=== PATIENT | female | born 1950 | race Caucasian/White ===

== ENCOUNTER 2017-07-30 07:09 | Observation (INO) | payer MEDICARE, OTHER ==
[~2017-07-30 07:09] MED LIST: CEFAZOLIN 1 GM INJ; CEFAZOLIN 1 GM/50 ML (PMX) 50 ML IVPB; GLYCOPYRROLATE 0.4 MG INJ; SOD CHLORIDE 0.9% 1,000 ML IV
[2017-07-30 11:02] LABS: ADD MAN DIFF? NO
[2017-07-30 11:07] LABS: BASOPHIL # 0.1 10^3/ul (0.0-0.1); BASOPHILS % 1.1 % (0.0-2.0); EOSINOPHILS # 0.2 10^3/ul (0.0-0.5); EOSINOPHILS % 4.4 % (0.0-7.0); HEMOGLOBIN 13.4 g/dl (12.0-16.0); LYMPHOCYTES # 1.6 10^3/ul (0.8-2.9); LYMPHOCYTES % 29.6 % (15.0-51.0); MEAN CORPUSCULAR HEMOGLOBIN 29.5 pg (29.0-33.0); MEAN CORPUSCULAR HGB CONC 33.5 g/dl (32.0-37.0); MEAN CORPUSCULAR VOLUME 88.1 fl (82.0-101.0); MEAN PLATELET VOLUME 9.8 fl (7.4-10.4); MONOCYTE # 0.4 10^3/ul (0.3-0.9); MONOCYTES % 6.6 % (0.0-11.0); NEUTROPHIL # 3.2 10^3/ul (1.6-7.5); NEUTROPHILS % 58.1 % (39.0-77.0); PLATELET COUNT 238 10^3/UL (140-415); RED BLOOD COUNT 4.54 10^6/ul (4.20-5.40); RED CELL DISTRIBUTION WIDTH 12.4 % (11.5-14.5)
[2017-07-30 11:07] LABS: WHITE BLOOD COUNT 5.5 10^3/ul (4.8-10.8)
[2017-07-30 11:23] LABS: ALANINE AMINOTRANSFERASE 44 IU/L (13-69); ALBUMIN 4.3 g/dl (3.3-4.9); ALBUMIN/GLOBULIN RATIO 1.34; ALKALINE PHOSPHATASE 78 IU/L (42-121); ANION GAP 15 (8-16); ASPARTATE AMINO TRANSFERASE 28 IU/L (15-46); BILIRUBIN,INDIRECT 0.3 mg/dl (0-1.1); BILIRUBIN,TOTAL 0.3 mg/dl (0.2-1.3); BLOOD UREA NITROGEN 13 mg/dl (7-20); CALCIUM 8.8 mg/dl (8.4-10.2); CARBON DIOXIDE 31 mmol/L (21-31); CHLORIDE 102 mmol/L (97-110); CREATININE 0.61 mg/dl (0.44-1.00); GLUCOSE 117 mg/dl (70-220); POTASSIUM 4.2 mmol/L (3.5-5.1); SODIUM 144 mmol/L (135-144); TOTAL PROTEIN 7.5 g/dl (6.1-8.1)
[2017-07-30 11:57] LABS: INR 0.91; PROTIME 12.3 Sec (11.9-14.9)
[2017-07-30 11:59] LABS: PARTIAL THROMBOPLASTIN TIME 24.7 Sec (25.0-35.0)
[2017-07-30] MEDS ORDERED: ISOSULFAN BLUE 1% 5 ML INJ SC (13:28)
[2017-07-30] MEDS ORDERED: FENTAnyl 50 MCG/ML VIAL (13:51)
[2017-07-30] MEDS ORDERED: MIDAZOLAM 1 MG/ML 2 ML INJ (13:51)
[2017-07-30] MEDS ORDERED: PROPOFOL 20 ML ×2 (14:21→14:25)
[2017-07-30] MEDS ORDERED: METOCLOPRAMIDE 10 MG INJ (14:21)
[2017-07-30] MEDS ORDERED: ONDANSETRON 4 MG INJ (14:21)
[2017-07-30] MEDS ORDERED: LIDOCAINE 2% (SDV) 5 ML INJ (14:21)
[2017-07-30] MEDS ORDERED: ACETAMINOPHEN 1000MG/100ML IV 100 ML (14:22)
[2017-07-30] MEDS ORDERED: DEXAMETHASONE 4 MG/ML 1 ML INJ (14:22)
[2017-07-30] MEDS: ISOSULFAN BLUE 1% 5 ML INJ SC (14:26)
[2017-07-30] MEDS ORDERED: MEPERIDINE 25 MG INJ IV (14:30)
[2017-07-30] MEDS ORDERED: LABETALOL HCL 20MG INJ IV (14:30)
[2017-07-30] MEDS ORDERED: OXYCODONE/ACETAMINOPHEN (5/325) TAB PO (14:30)
[2017-07-30] MEDS ORDERED: hydrALAzine 20 MG INJ IV (14:30)
[2017-07-30] MEDS ORDERED: FENTAnyl 50 MCG/ML VIAL IV (14:30)
[2017-07-30] MEDS ORDERED: ONDANSETRON 4 MG INJ IV ×2 (14:30→15:00)
[2017-07-30] MEDS ORDERED: EPHEDrine SULFATE 50 MG/5 ML SYG (14:33)
[2017-07-30] MEDS ORDERED: morphine 2 MG INJ IV (15:00)
[2017-07-30] MEDS: HYDROmorphONE (0.2 MG/ML) 10ML SYG IV (16:18)
[2017-07-30] MEDS: D5W-0.45 NACL + KCL 20 MEQ 1,000 ML IV (17:09)
[2017-07-30] MEDS: PANTOPRAZOLE (EC) 40 MG TAB PO (20:53)
[2017-07-31] MEDS: ACETAMINOPHEN 1000MG/100ML IV 100 ML IVPB ×2 (00:27→11:00)
[2017-07-31] MEDS: D5W-0.45 NACL + KCL 20 MEQ 1,000 ML IV ×2 (00:29→09:59)
[2017-07-31] MEDS: PANTOPRAZOLE (EC) 40 MG TAB PO (06:00)
== END 2017-07-31 13:33 | disposition home or self-care (01) ==
LOC: SDS 07:09 → MS1 16:45 → SDS 20:12 → MS1 15:34
DX: C50.411 Malignant neoplasm of upper-outer quadrant of right female breast (principal); Z17.0 Estrogen receptor positive status [ER+]; I10 Essential (primary) hypertension; J45.909 Unspecified asthma, uncomplicated; M19.90 Unspecified osteoarthritis, unspecified site; F32.9 Major depressive disorder, single episode, unspecified; G43.909 Migraine, unspecified, not intractable, without status migrainosus; E78.5 Hyperlipidemia, unspecified; K21.9 Gastro-esophageal reflux disease without esophagitis
CPT/HCPCS: 19301; 71045; 80053; 85025; 85610; 85730; 88307; 93005

== ENCOUNTER 2018-12-12 18:00 | Emergency (ER) | payer MEDICARE, OTHER ==
[2018-12-12] MEDS: KETOROLAC 15 MG INJ IM (20:31)
[2018-12-12 20:46] LABS: ADD UMIC YES; UR ASCORBIC ACID NEGATIVE (NEGATIVE); UR BACTERIA FEW /HPF (NONE SEEN); UR BILIRUBIN (Dip) NEGATIVE (NEGATIVE); UR BLOOD (Dip) 2+ mg/dL (NEGATIVE); UR CLARITY CLOUDY (CLEAR); UR COLOR YELLOW (YELLOW); UR GLUCOSE (Dip) NEGATIVE (NEGATIVE); UR KETONES (Dip) NEGATIVE (NEGATIVE); UR LEUKOCYTE ESTERASE (Dip) 3+ Leu/ul (NEGATIVE); UR NITRITE (Dip) POSITIVE (NEGATIVE); UR RBC 29 /HPF (0-5); UR SPECIFIC GRAVITY (Dip) 1.012 (1.003-1.030); UR TOTAL PROTEIN (Dip) 2+ mg/dl (NEGATIVE); UR UROBILINOGEN (Dip) NEGATIVE (NEGATIVE); UR WBC > 182 /HPF (0-5)
[2018-12-12] MEDS: CIPROFLOXACIN 500 MG TAB PO (21:13)
== END 2018-12-12 21:16 | disposition home or self-care (01) ==
LOC: FTE 18:00
DX: N39.0 Urinary tract infection, site not specified (principal); J45.909 Unspecified asthma, uncomplicated; I10 Essential (primary) hypertension; Z85.3 Personal history of malignant neoplasm of breast
CPT/HCPCS: 81001; 96372; 99284-25